=== PATIENT | female | born 1960 | race Caucasian/White ===

== ENCOUNTER → 2016-05-29 | Outpatient (CLI) | payer BC ==
[~2016-05-29] MED LIST: ASPI-586 PO; ESTR0.62 PO; LEVO50TA6 PO; LISI10TA2 PO; MELO7.5T46 PO; MULT-35 PO; OMG1KC PO
--- NOTE | 2016-05-29 15:13 | Diagnostic Imaging Report ---
PROCEDURE: MR imaging cervical spine without contrast. TECHNIQUE: Multiplanar, multisequence MR imaging of the cervical spine was performed without contrast. INDICATION: Chronic neck pain. COMPARISON: There are no prior studies available for comparison. FINDINGS: The reconstructed parasagittal images show the vertebral body heights and alignment to be within normal limits. The intervertebral spaces are fairly well-maintained although there is desiccation of the disc at every level. There are mild disc bulges essentially at every level of the cervical spine. However, the thecal sac is relatively generous. There is no evidence for central stenosis at any level of the cervical spine. There is mild narrowing of the neural foramen on the right at C3-C4 due to degenerative disc and bony disease. There does not appear to be any other significant neural foraminal narrowing. There is no abnormal signal arising from the cord or other vertebral bodies to indicate an acute abnormality. There is no sign of a paraspinal mass. The expected carotid and vertebral flow voids are evident bilaterally. IMPRESSION: 1. There is moderate degenerative disc disease throughout the cervical spine. There is no evidence for central stenosis at any level. There is mild narrowing of the neuroforamen on the right at C3-C4 due to degenerative disc and bony disease. 2. There is no sign of an acute bony abnormality or of a cord lesion. Dictated by: Dictated on workstation # [id number]
== END ==
LOC: RAD 13:58
PROVIDERS: ATTEND Family Medicine
DX: M50.31 Other cervical disc degeneration, high cervical region (principal)
CPT/HCPCS: 72141

== ENCOUNTER 2016-07-07 11:00 | Outpatient (CLI) | payer BC ==
--- OUTSIDE RECORDS SUMMARY | 2016-07-06 06:03 | XMS REPORT | Continuity of Care Document ---
Author Author [facility] Address Unknown Phone Unavailable Allergies Medications Problems Procedures Results Encounters ACCT No. Visit Date/Time Discharge Status Pt. Type Provider Facility Loc./Unit Complaint [id number] 03/19/2015 14:24:21 03/19/2015 23: 59:59 CLS Outpatient ANNA RODNEY [id number] 07/02/2016 09:44:20 ACT Outpatient ANNA RODNEY
[~2016-07-07] VITALS: Ht 154.9 cm; Wt 88.5 kg
[2016-07-07] MEDS ORDERED: LISI10TA2 PO (11:12)
[2016-07-07] MEDS ORDERED: MELO7.5T46 PO (11:12)
[2016-07-07] MEDS ORDERED: ESTR0.62 PO (11:12)
[2016-07-07] MEDS ORDERED: LEVO50TA6 PO (11:12)
[2016-07-07] MEDS ORDERED: OMG1KC PO (11:12)
[2016-07-07] MEDS ORDERED: MULT-35 PO (11:12)
[2016-07-07] MEDS ORDERED: ASPI-586 PO (11:13)
== END 2016-07-07 13:13 ==
LOC: PREOP 11:00
PROVIDERS: ATTEND Surgery Pediatric Surgery
DX: Z01.818 Encounter for other preprocedural examination (principal); Z12.11 Encounter for screening for malignant neoplasm of colon

== ENCOUNTER 2016-07-08 08:53 | Day surgery (SDC) | payer BC ==
[~2016-07-08] VITALS: Ht 154.9 cm; Wt 88.5 kg
[2016-07-08 09:05] VITALS: BP 142/86
[2016-07-08] MEDS ORDERED: LIDOCAINE JELLY 2% (XYLOCAINE) 5 ML TUBE MM PRN (09:15)
[2016-07-08] MEDS ORDERED: FLUMAZENIL (ROMAZICON) 0.1 MG/ML 5 ML VIAL INJ PRN (09:15)
[2016-07-08] MEDS ORDERED: NS IV 500 ML 500 ML IV PRN (09:15)
[2016-07-08] MEDS ORDERED: NALOXONE 0.4 MG/ML 1 ML (NARCAN) VIAL IVP PRN (09:15)
[2016-07-08] MEDS ORDERED: NS IV 500 ML 500 ML ONE (09:16)
--- NOTE | 2016-07-08 10:07 | Conscious Sedation/ASA ---
Conscious Sedation Pre-Proced Time Reviewed: 09:45 ASA Class: 2 Airway Mallampati Classification: (upper mattaponi appropriate class) I. II. III, IV Lungs Heart ASA score ASA 1: a normal healthy patient ASA 2: a patient with a mild systemic disease (mid diabetes, controlled hypertension, obesity ASA 3: a patient with a severe systemic disease that limits activity (angina , COPD, prior Myocardial infarction) ASA 4: a patient with an incapacitating disease that is a constant threat to life (CHF, renal failure) ASA 5: a moribund patient not expected to survive 24 hrs. (ruptured aneurysm) ASA 6: a declared brain patient whose organs are being harvested. For emergent operations, add the letter E after the classification Grade 2 Sedation Plan: Analgesia, Amnesia, Plan communicated to team members, Discussed options with patient/fam, Discussed risks with patient/fam Note The patient is an appropriate candidate to undergo the planned procedure, sedation, and anesthesia. The patient immediately re-assessed prior to indication. CLEMENCIA MONTALVO MD Jul 08, 2016 10:07 am
--- NOTE | 2016-07-08 10:11 | Progress Note-Pre Operative ---
Pre-Operative Progress Note H&P Reviewed The H&P was reviewed, patient examined and no changes noted. Date H&P Reviewed: Jul 08, 2016 Time H&P Reviewed: 09:45 Pre-Operative Diagnosis: screening colonoscopy CLEMENCIA MONTALVO MD Jul 08, 2016 10:11 am
[2016-07-08] MEDS ORDERED: ONDANSETRON 4 MG/2 ML (SDV) Z0FRAN IV PRN (10:15)
[2016-07-08] MEDS ORDERED: morphine INJ 10 MG/ML 1ML (SYR OR VIAL) IV PRN (10:15)
[2016-07-08] MEDS ORDERED: ACETAMINOPHEN 325 MG TABLET/CAPLET (TYLENOL) PO PRN (10:15)
[2016-07-08] MEDS ORDERED: HYDROcodone/APAP 5 MG/325 MG (LORTAB) TAB PO PRN (10:15)
[2016-07-08] MEDS ORDERED: fentaNYL INJECTION 100 MCG/2 ML AMP ONE ×2 (11:06)
[2016-07-08] MEDS ORDERED: LIDOCAINE JELLY 2% (XYLOCAINE) 5 ML TUBE ONE (11:06)
[2016-07-08] MEDS ORDERED: MIDAZOLAM 2 MG/2 ML (VERSED) VIAL ONE ×4 (11:07)
[2016-07-08] MEDS: fentaNYL INJECTION 100 MCG/2 ML AMP IVP PRN ×2 (11:09→11:13)
[2016-07-08] MEDS: MIDAZOLAM 2 MG/2 ML (VERSED) VIAL IVP PRN ×3 (11:12→11:21)
--- NOTE | 2016-07-08 11:36 | Progress Note-Post Operative ---
Post-Operative Progess Note Pre-Operative Diagnosis screening colonoscopy Post-Operative Diagnosis chronic stage 2 ext and int hemorrhoids. Post-Op Procedure Note Date of Procedure: Jul 08, 2016 Name of Procedure: Colonoscopy Anesthesia Type CS Estimated blood loss (mL): CLEMENCIA Gamez MD Jul 08, 2016 11:36 am
--- NOTE | 2016-07-08 11:38 | Discharge Inst-Surgical ---
D/C Lap Instructions-SELVIN Follow Up 10 years Activity as tolerated High Fiber Diet 25g or more per day Avoid Alcohol, Caffeine, Spicy [place] and Acid foods. Drink 64 fluid oz or more of fluids per day. Symptoms to Report: Fever over 101 degree F, Nausea/Vomiting If any problems/questions: Contact your physician or go to Emergency Room CLEMENCIA MONTALVO MD Jul 08, 2016 11:38 am
[2016-07-08 12:05] VITALS: BP 145/80
[2016-07-08 12:35] VITALS: BP 128/85
[2016-07-08 12:50] VITALS: BP 128/85
--- NOTE | 2016-07-08 13:14 | PROCEDURE REPORT ---
PROCEDURE PHYSICIAN: CLEMENCIA NOBLE DATE OF PROCEDURE: 07/08/2016 ATTENDING PRIMARY CARE PHYSICIAN: Dr. Kevon Ibanez. PREOPERATIVE DIAGNOSIS: Screening colonoscopy. POSTOPERATIVE DIAGNOSES: Mild chronic, stage II external and internal hemorrhoids. PROCEDURE: Colonoscopy. SURGEON: Dr. Noble. ANESTHESIA: Conscious sedation. ESTIMATED BLOOD LOSS: Minimal. FINDINGS: 1. Chronic, stage II external and internal hemorrhoids, not actively edematous or inflamed and no bleeding. 2. The remainder of the rectum and colon were normal. There were no polyps identified. DISPOSITION: The patient tolerated the procedure well. BRIEF HISTORY: Ms. Margie Villela is a 56-year-old female in need of a screening colonoscopy. She has not had a colonoscopy up to this point in her life. She does not report any major issues with diarrhea, nor constipation, as well as no abdominal pain. She does have some mild reflux, however, this is under control with diet. She does not report any red blood per rectum or any dark tarry stools. She reports that she does have a sister that had a polyp with what sounds to be dysplastic versus atypical change; however, no known colonic cancer. PROCEDURE: The patient was brought to the endoscopy suite, laid in left lateral decubitus position. After adequate IV pain and sedative medications and conscious sedation anesthesia, a digital rectal examination was performed. Mild chronic, stage II external and internal hemorrhoids were identified which were not actively edematous or inflamed and no bleeding. Normal sphincter tone was felt and there were no palpable masses. The endoscope was then intubated into the anus, rectum gently insufflated. The endoscope was then advanced through the valves of Estes of the rectum with no polyps or any or any neoplasms identified. We then proceeded through the sigmoid colon where no diverticulosis identified. The endoscope was then advanced through the remainder of the descending, transverse, and ascending colon to the cecum. These segments were normal. There were no polyps or any neoplasms identified throughout the colon or rectum. The endoscope was then slowly withdrawn while taking a second look and suctioning of residual air with no additional findings. The patient tolerated the procedure well. We will have her continue with medical management with a high fiber diet with at least 25 grams of fiber per day, as well as 64 fluid ounces of water daily to promote soft stools on a daily basis. She does not need another colonoscopy for another 10 years. Job ID: [id number] Dictated Date: 07/08/2016 11:34:03 Structural Biologist Date: 07/08/2016 13:08:49 / maday
--- OUTSIDE RECORDS SUMMARY | 2016-07-12 04:43 | XMS REPORT ---
Author Author ANNA RODNEY [facility] Address [address] [place], [place] [id number] Care Team Providers Care Box Liner Name Role Phone ANNA RODNEY PCP Unavailable ANNA RODNEY PreferredProvider Unavailable Allergies and Adverse Reactions Name Reaction Notes No known drug allergy Plan of Treatment Not available. Medications Active Name Start Date Estimated Completion Date SIG Comments Premarin 0.625 mg oral tablet take 1 tablet (0.625 mg) by oral route once daily levothyroxine 50 mcg oral tablet take 1 tablet (50 mcg) by oral route once daily lisinopril 10 mg oral tablet take 1 tablet (10 mg) by oral route once daily Problem List Not available. Vital Signs Date Time BP-Sys(mm[Hg] BP-Sarah(mm[Hg]) HR(bpm) RR(rpm) Temp WT HT HC BMI BSA BMI Percentile O2 Sat(%) 07/02/2016 11:45:00 AM 135 mmHg 82 mmHg 62 bpm 18 rpm 98.4 F 200 lbs 61 in 37.79 kg/m2 1.98 m2 98 % 03/19/2015 2:26:00 PM 135 mmHg 70 mmHg 72 bpm 16 rpm 98.4 F 191 lbs 61 in 36.0888 kg/m 1.931 m 97 % Social History Name Description Comments smoking Never Alcohol Current - status unknown Uses seatbelts Current every day Exercises regularly Never History of Procedures Not available. Results Summary Not available. History Of Immunizations Not available. 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 History of Encounters Visit Date Visit Type Provider 07/02/2016 Office visit ANNA DEJESUS 03/19/2015 Office visit ANNA DEJESUS
--- OUTSIDE RECORDS SUMMARY | 2016-07-12 04:43 | XMS REPORT ---
Author Author ANNA RODNEY [facility] Address [address] [place], [place] [id number] Care Team Providers Care Manufacturing Engineering Director Name Role Phone ANNA RODNEY PCP Unavailable Allergies and Adverse Reactions Name Reaction [...] HC BMI BSA BMI Percentile O2 Sat(%) 03/19/2015 2:26:00 PM 135 mmHg 70 mmHg 72 bpm 16 rpm 98.4 F 191 lbs 61 in 36.09 kg/m2 1.93 m2 97 % Social History Name Description Comments smoking Never Alcohol Current - status unknown Uses seatbelts Current every day Exercises regularly Never History of Procedures Not available. Results Summary Not available. History Of Immunizations Not available. History of Past Illness Name Date of Onset Comments Hypertension High cholesterol DOT Physical Mar 19 2015 2:27PM Payers Not available. History of Encounters Visit Date Visit Type Provider 03/19/2015 Office visit ANNA DEJESUS
--- OUTSIDE RECORDS SUMMARY | 2016-07-12 04:43 | XMS REPORT | Continuity of Care Document ---
Author Author [facility] Address Unknown Phone Unavailable Allergies Medications Problems Procedures Results Encounters ACCT No. Visit Date/Time Discharge Status Pt. Type Provider Facility Loc./Unit Complaint [id number] 03/19/2015 14:24:21 03/19/2015 23: 59:59 CLS Outpatient ANNA RODNEY [id number] 07/02/2016 09:44:20 ACT Outpatient ANNA RODNEY
== END 2016-07-08 12:50 | disposition home or self-care (01) ==
LOC: DELPENDDIS → ENDO 08:53
PROVIDERS: ATTEND Surgery Pediatric Surgery
DX: Z12.11 Encounter for screening for malignant neoplasm of colon (principal); K64.1 Second degree hemorrhoids

== ENCOUNTER → 2017-03-15 | Outpatient (CLI) | payer BC | LOC: RAD 11:20 | PROVIDERS: ATTEND Family Medicine | DX: Z12.31 Encounter for screening mammogram for malignant neoplasm of breast (principal) | CPT/HCPCS: 77067 ==

== ENCOUNTER → 2017-03-29 | Outpatient (CLI) | payer BC ==
--- NOTE | 2017-03-29 10:17 | Diagnostic Imaging Report ---
EXAMINATION: Right breast diagnostic mammogram. The current study was also evaluated with a Computer Aided Detection (CAD) system. INDICATION: Focal asymmetry seen along the central upper aspect of the right breast. FINDINGS: Focal compression views and tomography evaluation confirms a lobulated circumscribed mass measuring 1.2 cm around the 11 to 12 o'clock zone about 3 cm from the nipple. This is favored to be a cyst or fibroadenoma. IMPRESSION: A circumscribed 1.2 cm mass is confirmed in the upper aspect of the right breast. Ultrasound evaluation is pending. ACR BI-RADS Category 0: Incomplete. (Needs additional imaging evaluation). Result letter will be mailed to the patient. Note: At least 10% of breast cancer is not imaged by mammography. Dictated by: Dictated on workstation # [id number]
--- NOTE | 2017-03-29 10:20 | Diagnostic Imaging Report ---
EXAMINATION: Right breast ultrasound. INDICATION: Nodule in the upper aspect of the right breast. FINDINGS: At the 11:30 o'clock position 7 cm from the nipple, there is a 1.4 x 0.5 x 0.9 cm lobulated hypoechoic lesion with no significant through-transmission or internal vascularity. The borders are circumscribed. This is favored to be a complicated cyst. No other lesion is seen in the surrounding area. IMPRESSION: 1.4 cm circumscribed hypoechoic lesion at the 11:30 o'clock position 7 cm from the nipple may correlate with the nodule seen on mammography which also has features in favor of a benign etiology. A 6 month followup mammogram and ultrasound are recommended to ensure stability. ACR BI-RADS Category 3: Probably benign findings. Dictated by: Dictated on workstation # [id number]
== END ==
LOC: RAD 08:59
PROVIDERS: ATTEND Family Medicine
DX: N63.41 Unspecified lump in right breast, subareolar (principal)

== ENCOUNTER → 2017-04-15 | Outpatient (CLI) | payer BC ==
--- NOTE | 2017-04-15 12:00 | Diagnostic Imaging Report ---
EXAMINATION: DEXA scan. INDICATION: Osteopenia. TECHNIQUE: Bone mineral density estimated based on dual energy radiography over the lumbar spine and femoral necks, was performed. FINDINGS: The lumbar spine T-score is -1.7. This is 0.7% decreased density measurement compared to 2015 exam. The T score in the left femoral neck is -0.3 and on the right side is -0.4. This is 5% increased density measurement compared to 2013. IMPRESSION: Osteopenia. Dictated by: Dictated on workstation # [id number]
== END ==
LOC: RAD 08:51
PROVIDERS: ATTEND Family Medicine
DX: M85.80 Other specified disorders of bone density and structure, unspecified site (principal)
CPT/HCPCS: 77080

== ENCOUNTER → 2017-08-23 | Outpatient (CLI) | payer BC ==
[~2017-08-23] MED LIST changes: +HYDR-34 PO
--- NOTE | 2017-08-23 15:45 | Diagnostic Imaging Report ---
EXAMINATION: Left wrist at 10:21 a.m. INDICATION: Wrist pain. FINDINGS: Three views were obtained. There are no prior studies available for comparison. There is deformity of the waist of the scaphoid bone. Most likely, this is a sequela of prior trauma. There is also a 2.6 x 5.2 mm calcification in the soft tissues adjacent to the lateral aspect of the scaphoid bone. This may be a long-standing fracture fragment. There is no increased density within the proximal scaphoid to suggest avascular necrosis; however if further evaluation is desired, then MRI will be recommended. There is no fracture or acute bony abnormality appreciated otherwise. There is moderate narrowing of the radiocarpal joint. The soft tissues are unremarkable. IMPRESSION: 1. There is no evidence for an acute bony abnormality. 2. There are posttraumatic changes involving the scaphoid bone. There is no evidence for avascular necrosis, but MRI should be considered for further evaluation if clinically indicated. There is moderate narrowing of the radiocarpal joint. Dictated by: Dictated on workstation # [id number]
== END ==
LOC: LAB 09:44
PROVIDERS: ATTEND Family Medicine
DX: M19.232 Secondary osteoarthritis, left wrist (principal)
CPT/HCPCS: 73110

== ENCOUNTER → 2017-09-06 | Outpatient (CLI) | payer BC ==
--- NOTE | 2017-09-06 14:13 | Diagnostic Imaging Report ---
INDICATION: Six-month followup right breast nodule. COMPARISON: Correlation is made with prior mammogram from 03/15/2017. TECHNIQUE: 2D and 3D unilateral right diagnostic mammography was performed. The current study was also evaluated with a Computer Aided Detection (CAD) system. FINDINGS: The circumscribed lobulated density in the upper aspect of the right breast appears to be stable. No new mass is identified. No malignant appearing microcalcifications are seen. The right axilla is unremarkable. IMPRESSION: Stable circumscribed nodule in the upper right breast at posterior depth when compared with the examination six months earlier. Followup right breast ultrasound is also recommended and will be performed today. ACR BI-RADS Category 0: Incomplete. (Needs additional imaging evaluation). Result letter will be mailed to the patient. Note: At least 10% of breast cancer is not imaged by mammography. Dictated by: Dictated on workstation # [id number]
--- NOTE | 2017-09-06 14:43 | Diagnostic Imaging Report ---
Indication: Right breast nodule. Patient presents for six-month followup. Correlation is made with prior right breast ultrasound from 03/29/2017 as well as diagnostic mammogram earlier the same day. Sonographic interrogation of the right breast again demonstrates a circumscribed hypoechoic mass at the 11:30 location, 7 cm from the nipple. This measures 12 mm x 4 mm x 10 mm compared with 14 mm x 5 mm x 10 mm. This has the appearance of a cyst. No internal vascularity is seen. No additional masses detected. Impression: BI-RADS category 3. Stable circumscribed hypoechoic mass 11:30 location of right breast, likely cysts. Additional six-month followup at the time of patient's bilateral mammography in 6 months is recommended to confirm stability. Dictated by: Dictated on workstation # [id number]
== END ==
LOC: RAD 13:40
PROVIDERS: ATTEND Family Medicine
DX: N63.11 Unspecified lump in the right breast, upper outer quadrant (principal)

== ENCOUNTER 2017-09-27 10:42 | Outpatient (CLI) | payer BC ==
[~2017-09-27] VITALS: Ht 154.9 cm; Wt 88.2 kg
[~2017-09-27 10:42] MED LIST changes: -HYDR-34 PO
[2017-09-27 11:00] VITALS: BP 126/76
== END 2017-09-27 11:17 | disposition home or self-care (01) ==
LOC: PREOP 10:42
PROVIDERS: ATTEND Surgery
DX: Z01.818 Encounter for other preprocedural examination (principal); Z11.2 Encounter for screening for other bacterial diseases; N63.10 Unspecified lump in the right breast, unspecified quadrant
CPT/HCPCS: 87081

== ENCOUNTER 2017-09-30 08:17 | Day surgery (SDC) | payer BC ==
[~2017-09-30] VITALS: Ht 154.9 cm; Wt 88.2 kg
[2017-09-30 08:20] VITALS: BP 135/65
[2017-09-30] MEDS ORDERED: LIDOCAINE 1% INJ 20 ML 20 ML VIAL INJ ONE (08:30)
[2017-09-30] MEDS ORDERED: ceFAZolin INJECTION 1,000 MG in NS (IVPB) 50 ML IV ONE (08:30)
--- OUTSIDE RECORDS SUMMARY | 2017-09-30 08:37 | XMS REPORT | Continuity of Care Document ---
Author Author [facility] Organization [facility] Address Unknown Phone Unavailable Allergies Active Description Code Type Severity Reaction Onset Reported/Identified Relationship to Patient Clinical Status Yes No Known Drug Allergies [id number] Drug Allergy Unknown N/A 07/08/2016 Medications There is no data. Problems Date Dx Coded Attending Type Code Diagnosis Diagnosed By 09/02/2015 Ot 733.90 BONE CARTILAGE DIS NOS 09/02/2015 Ot V76.12 OTH SCREEN MAMMO-MALIGN NEOPLASM OF CHELSI 09/02/2015 Ot 733.90 BONE CARTILAGE DIS NOS 09/02/2015 Ot V17.81 FAMILY HISTORY, OSTEOPOROSIS 09/02/2015 Ot V76.12 OTH SCREEN MAMMO-MALIGN NEOPLASM OF CHELSI 09/02/2015 Ot V82.81 SCREENING FOR OSTEOPOROSIS 05/29/2016 Ot 733.90 BONE CARTILAGE DIS NOS 05/29/2016 Ot V17.81 FAMILY HISTORY, OSTEOPOROSIS 05/29/2016 Ot V76.12 OTH SCREEN MAMMO-MALIGN NEOPLASM OF CHELSI 05/29/2016 Ot V82.81 SCREENING FOR OSTEOPOROSIS 06/01/2016 CANDELARIA GRIER, JW R Ot M50.31 OTHER CERVICAL DISC DEGENERATION, HIGH 06/24/2016 JW GAONA MD R Ot M50.31 OTHER CERVICAL DISC DEGENERATION, HIGH 07/07/2016 CLEMENCIA MONTALVO MD Ot Z01.818 ENCOUNTER FOR OTHER PREPROCEDURAL EXAMIN 07/07/2016 CLEMENCIA MONTALVO MD Ot Z12.11 ENCOUNTER FOR SCREENING FOR MALIGNANT NE 07/07/2016 CLEMENCIA MONTALVO MD Ot Z01.818 ENCOUNTER FOR OTHER PREPROCEDURAL EXAMIN 07/07/2016 CLEMENCIA MONTALVO MD Ot Z12.11 ENCOUNTER FOR SCREENING FOR MALIGNANT NE 07/07/2016 CLEMENCIA MONTALVO MD Ot Z01.818 ENCOUNTER FOR OTHER PREPROCEDURAL EXAMIN 07/07/2016 CLEMENCIA MONTALVO MD Ot Z12.11 ENCOUNTER FOR SCREENING FOR MALIGNANT NE 07/07/2016 CLEMENCIA MONTALVO MD Ot Z01.818 ENCOUNTER FOR OTHER PREPROCEDURAL EXAMIN 07/07/2016 CLEMENCIA MONTALVO MD Ot Z12.11 ENCOUNTER FOR SCREENING FOR MALIGNANT NE 07/08/2016 CLEMENCIA MONTALVO MD Ot K64.1 SECOND DEGREE HEMORRHOIDS 07/08/2016 CLEMENCIA MONTALVO MD Ot Z12.11 ENCOUNTER FOR SCREENING FOR MALIGNANT NE 07/08/2016 CLEMENCIA MONTALVO MD Ot Z01.818 ENCOUNTER FOR OTHER PREPROCEDURAL EXAMIN 07/08/2016 CLEMENCIA MONTALVO MD Ot Z12.11 ENCOUNTER FOR SCREENING FOR MALIGNANT NE 07/09/2016 CLEMENCIA MONTALVO MD Ot K64.1 SECOND DEGREE HEMORRHOIDS 07/09/2016 CLEMENCIA MONTALVO MD Ot Z12.11 ENCOUNTER FOR SCREENING FOR MALIGNANT NE 07/09/2016 CLEMENCIA MONTALVO MD Ot K64.1 SECOND DEGREE HEMORRHOIDS 07/09/2016 CLEMENCIA MONTALVO MD Ot Z12.11 ENCOUNTER FOR SCREENING FOR MALIGNANT NE 07/14/2016 CLEMENCIA MONTALVO MD Ot K64.1 SECOND DEGREE HEMORRHOIDS 07/14/2016 CLEMENCIA MONTALVO MD Ot Z12.11 ENCOUNTER FOR SCREENING FOR MALIGNANT NE 03/16/2017 JW GAONA MD R Ot Z12.31 ENCNTR SCREEN MAMMOGRAM FOR MALIGNANT NE 04/07/2017 JW GAONA MD R Ot N63.41 UNSPECIFIED LUMP IN RIGHT BREAST, SUBARE 04/16/2017 JW GAONA MD R Ot M85.80 OTH DISRD OF BONE DENSITY AND STRUCTURE, 04/29/2017 JW GAONA MD R Ot M85.80 OTH DISRD OF BONE DENSITY AND STRUCTURE, 08/25/2017 JW GAONA MD R Ot M19.232 SECONDARY OSTEOARTHRITIS, LEFT WRIST 09/07/2017 JW GAONA MD R Ot N63.11 UNSPECIFIED LUMP IN THE RIGHT BREAST, UP 09/09/2017 JW GAONA MD R Ot M19.232 SECONDARY OSTEOARTHRITIS, LEFT WRIST 09/22/2017 JW GAONA MD R Ot N63.11 UNSPECIFIED LUMP IN THE RIGHT BREAST, UP Procedures There is no data. Results Test Result Range Methicillin resistant Staphylococcus aureus (MRSA) screening culture - 11:10 Methicillin resistant Staphylococcus aureus (MRSA) screening culture NEG NRG Encounters ACCT No. Visit Date/Time Discharge Status Pt. Type Provider Facility Loc./Unit Complaint [id number] 07/02/2016 09:44:20 07/02/2016 23:59:59 CLS Outpatient ANNA RODNEY [id number] 03/19/2015 14:24:21 03/19/2015 23:59:59 CLS Outpatient ANNA RODNEY [id number] 09/21/2017 15:25:00 09/21/2017 23:59:59 CLS Preadmit DEISY CADENA APRN [facility] SDC RT BREAST MASS [id number] 09/06/2017 13:40:00 09/06/2017 23:59:59 CLS Outpatient JW GAONA MD [facility] RAD RIGHT BREAST MASS [id number] 08/23/2017 09:44:00 08/23/2017 23:59:59 CLS Outpatient JW GAONA MD [facility] LAB M19.232 [id number] 04/15/2017 08:51:00 04/15/2017 23:59:59 CLS Outpatient JW GAONA MD [facility] RAD WELLNESS EXAMINATION [id number] 03/29/2017 08:59:00 03/29/2017 23:59:59 CLS Outpatient JW GAONA MD [facility] RAD ABNORMAL MAMMOGRAM OF RIGHT BREAST [id number] 03/15/2017 11:30:00 03/15/2017 11:30:00 CAN Preadmit JW GAONA MD [facility] RAD WELLNESS EXAM Z00.00 [id number] 07/08/2016 08:53:00 07/08/2016 12:50:00 DIS Outpatient CLEMENCIA MONTALVO MD [facility] ENDO SCREENING [id number] 07/07/2016 11:00:00 07/07/2016 13:13:00 DIS Outpatient CLEMENCIA MONTALVO MD [facility] PREOP SCREENING [id number] 05/29/2016 13:58:00 05/29/2016 23:59:59 CLS Outpatient CANDELARIA GRIER, JW Davalos [facility] RAD NEUROPATHY [id number] 09/28/2017 17:05:00 Document Registration [id number] 07/05/2012 14:22:00 Document Registration [id number] 07/22/2010 10:20:00 Document Registration
[2017-09-30] MEDS ORDERED: BUP/EPI 0.5% 1:200,000 (SENSORCAINE) 30 ML VIAL ONE (09:03)
[2017-09-30] MEDS: LACTATED RINGERS 1,000 ML IV PRN ×2 (09:14→10:33)
[2017-09-30] MEDS ORDERED: NS (IVPB) 50 ML ONE (09:15)
[2017-09-30] MEDS ORDERED: ceFAZolin 1,000 MG (ANCEF) VIAL ONE (09:15)
--- NOTE | 2017-09-30 09:16 | Pre-Procedure Progress Note ---
Pre-Procedure Progress Note H&P Reviewed The H&P was reviewed, patient examined and no changes noted. Date H&P Reviewed: Sep 30, 2017 Time H&P Reviewed: 08:00 Pre-Procedure Diagnosis: Breast mass MURALI ZARAGOZA MD Sep 30, 2017 09:16
[2017-09-30] MEDS ORDERED: MIDAZOLAM 2 MG/2 ML (VERSED) VIAL ONE (09:21)
[2017-09-30] MEDS ORDERED: fentaNYL INJECTION 100 MCG/2 ML AMP ONE (09:22)
[2017-09-30] MEDS ORDERED: proPOfol 200 MG/20 ML (DIPRIVAN) VIAL IV ONE (09:24)
[2017-09-30] MEDS ORDERED: DEXAMETHASONE 10 MG/ML (DECADRON) 1 ML VIAL ONE (09:24)
[2017-09-30] MEDS ORDERED: LIDOCAINE PF 2% 5 ML (XYLOCAINE) VIAL ONE (09:24)
[2017-09-30] MEDS ORDERED: ONDANSETRON 4 MG/2 ML (SDV) Z0FRAN ONE (09:24)
--- NOTE | 2017-09-30 09:29 | Progress Note-Pre Operative ---
Pre-Operative Progress Note H&P Reviewed The H&P was reviewed, patient examined and no changes noted. Date Seen by Provider: Sep 30, 2017 Time Seen by Provider: 09:00 Date H&P Reviewed: Sep 30, 2017 Time H&P Reviewed: 09:00 Pre-Operative Diagnosis: persistent right breast lesion CLEMENCIA MONTALVO MD Sep 30, 2017 9:29 am
[2017-09-30] MEDS ORDERED: HYDROcodone/APAP 5 MG/325 MG (LORTAB) TAB PO ONE (09:30)
[2017-09-30] MEDS ORDERED: ACETAMINOPHEN 325 MG TABLET/CAPLET (TYLENOL) PO PRN (09:30)
[2017-09-30] MEDS ORDERED: ONDANSETRON 4 MG/2 ML (SDV) Z0FRAN IVP PRN ×2 (09:30→11:30)
[2017-09-30] MEDS ORDERED: morphine INJ 10 MG/ML 1ML (SYR OR VIAL) IVP PRN ×2 (09:30→11:30)
[2017-09-30] MEDS ORDERED: SEVOFLURANE (ULTANE) 15 ML INHAL SOLN ONE ×4 (10:44→11:18)
--- NOTE | 2017-09-30 10:46 | Diagnostic Imaging Report ---
Indication: Right breast nodule. Patient presents for ultrasound-guided needle localization. Patient was brought to the procedure room and placed on the table in the supine position. Ultrasound imaging over the right breast was performed to evaluate appropriate entry site. The right breast was then prepped and draped in usual sterile fashion. Small amount of 1% lidocaine was utilized for local anesthesia. The previously noted circumscribed hypoechoic nodule at 11:30 location of the right breast 7 cm from the nipple was visualized. Localizing needle was advanced and placed adjacent to the hypoechoic nodule. Hookwire was deployed and the needle was removed. Wire was affixed to the patient's skin. Patient tolerated the procedure well. IMPRESSION: Ultrasound-guided hookwire placement adjacent to the circumscribed nodule in the right breast at 11:30 location 7 cm from the nipple. Dictated by: Dictated on workstation # [id number]
--- NOTE | 2017-09-30 11:03 | Progress Note-Post Operative ---
Post-Operative Progess Note Surgeon (s)/Oriental Medicine Practitioner (s) Surgeon CELMENCIA MONTALVO MD Oriental Medicine Practitioner: marcelino mao INCIDENT HANDLER Pre-Operative Diagnosis persistent right breast lesion Post-Operative Diagnosis same Procedure & Operative Findings Date of Procedure 09/30/17 Procedure Performed/Findings needle localization right breast bx. Anesthesia Type general LMA Estimated Blood Loss Estimated blood loss (mL): minimal Specimens/Packing Specimens Removed right breast lesion CLEMENCIA MONTALVO MD Sep 30, 2017 11:03 am
[2017-09-30] MEDS ORDERED: HYDR-34 PO (11:05)
--- NOTE | 2017-09-30 11:06 | Discharge Inst-Surgical ---
D/C Lap Instructions-SELVIN New, Converted, or Re-Newed RX: RX on Chart Follow Up Appt in 2 weeks Activity as tolerated Regular Diet Symptoms to Report: Fever over 101 degree F, Nausea/Vomiting Infection Signs and Symptoms to report: Increased redness, Foul odor of wound, Increased drainage Bathing instructions: May shower Operative Area Clean/Dry; Keep incision clean/dry If any problems/questions: Contact your physician or go to Emergency Room CLEMENCIA MONTALVO MD Sep 30, 2017 11:06 am
[2017-09-30] MEDS ORDERED: BUP/EPI 0.5% 1:200,000 (SENSORCAINE) 30 ML VIAL INJ ONE (11:15)
[2017-09-30 12:25] VITALS: BP 128/82
[2017-09-30 12:55] VITALS: BP 122/66
--- NOTE | 2017-09-30 13:20 | Anesthesia-General Post-Op ---
General Patient Condition Mental Status/LOC: Same as Preop Cardiovascular: Satisfactory Nausea/Vomiting: Absent Respiratory: Satisfactory Pain: Controlled Complications: Absent Post Op Complications Complications None Follow Up Care/Instructions Patient Instructions None needed. Anesthesia/Patient Condition Patient Condition Patient is doing well, no complaints, stable vital signs, no apparent adverse anesthesia problems. No complications reported per nursing. D/C home per [facility] [place] Criteria: Yes JOSE BLACKMAN CRNA Sep 30, 2017 13:20
[2017-09-30 13:25] VITALS: BP 116/68
[2017-09-30 13:35] VITALS: BP 116/68
--- NOTE | 2017-09-30 14:46 | OPERATIVE REPORT ---
DATE OF SERVICE: 09/30/2017 ATTENDING PRIMARY CARE PHYSICIAN: Dr. Ibanez. PREOPERATIVE DIAGNOSIS: Persistent right breast lesion. POSTOPERATIVE DIAGNOSIS: Persistent right breast lesion. PROCEDURE: Needle localization wire-guided breast biopsy. SURGEON: Clemencia Montalvo MD HOGSHEAD WRECKER: Neel Maurice APRN ANESTHESIA: General laryngeal mask airway. ESTIMATED BLOOD LOSS: Minimal. FINDINGS: The initial impression after excision was the lesion was excised; however, the lesion may have been close to the deep margin and we proceeded with a second resection posteriorly. DISPOSITION: The patient tolerated the procedure well. INDICATIONS: The patient is a 57-year-old female known to us. We had done a colonoscopy before in 2017. She has a right breast mass that was identified on annual mammogram in 2017. An ultrasound was also performed which did show the lesion at approximately the 11:30 position 7 cm from the nipple, which was hypoechoic approximately 1.2 cm in size. A repeat ultrasound was performed on 09/06/2017, which showed a stable circumscribed lesion 12 x 10 mm in size. The lesion is nonpalpable and she does not report any symptoms; however, she does have a strong family history of breast cancer with three sisters being diagnosed with breast cancer as well as her maternal grandmother. She also believes there are other malignancies within the family. DESCRIPTION OF PROCEDURE: The patient was brought to the operating room, laid supine on the table. After adequate IV pain and sedative medications and general laryngeal mask airway intubation, the chest was prepped and draped in standard surgical fashion. A 0.5% Marcaine with epinephrine was then used to anesthetize the overlying skin just inferior to the needle. A crescent-shaped skin incision was then made using a 15 blade. The subcutaneous tissue was then opened using electrocautery. We then proceeded to dissect a core around the entirety of the needle using Nabil clamps and electrocautery with visualization of good hemostasis. The specimen was sent to radiology and the initial reading was that the lesion was excised; however, the tip of the lesion was close to the deep margin and we decided to proceed with second deep margin excision using electrocautery and blunt dissection with visualization of good hemostasis. The wound was then irrigated. Good hemostasis was observed. The breast tissue was then reapproximated using 3-0 Vicryl suture. The subcutaneous tissue was then reapproximated using 3-0 Vicryl interrupted sutures. Skin was closed using 4-0 Monocryl running subcuticular suture. The widest dimension of the intermediate wound closure was 6cm. The skin was then cleaned and covered with Dermabond. The patient tolerated the procedure well. We will await the biopsy results and she will be instructed to continue to proceed with breast supportive garments to prevent seroma formation as well as to withhold from heavy lifting and exertion for two weeks. Job ID: [id number] DocumentID: [id number] Dictated Date: 09/30/2017 11:12:54 [employer] Cleaning Machine Feeder Date: 09/30/2017 14:46:08 Dictated By: CLEMENCIA MONTALVO MD MTDD
--- NOTE | 2017-09-30 19:28 | Diagnostic Imaging Report ---
INDICATION: Right breast nodule. Patient is status post right breast excisional biopsy. EXAMINATION: Specimen radiograph was obtained. FINDINGS: Radiograph does demonstrate the hookwire located within the specimen. There is an area of nodularity present adjacent to the tip of the hook wire, possibly representing the known breast nodule. Remainder of the specimen is unremarkable. No suspicious calcifications are seen. IMPRESSION: The hook wire is located within the specimen. There is also an area of nodularity adjacent to the tip of the hook wire, presumably representing the targeted breast nodule. Pathology results are currently pending. Dictated by: Dictated on workstation # [id number]
== END 2017-09-30 13:35 | disposition home or self-care (01) ==
LOC: RAD 08:17
PROVIDERS: ATTEND Surgery
DX: N60.91 Unspecified benign mammary dysplasia of right breast (principal); I10 Essential (primary) hypertension; Z79.82 Long term (current) use of aspirin; Z79.899 Other long term (current) drug therapy
CPT/HCPCS: 19285; 76098; 88305

== ENCOUNTER → 2020-02-06 | Outpatient (CLI) | payer BC ==
[~2020-02-06] MED LIST changes: +HYDR-34 PO
--- NOTE | 2020-02-06 15:50 | Diagnostic Imaging Report ---
INDICATION: Postmenopausal. COMPARISON: 04/15/2017. FINDINGS: The bone mineral density of the hips and spine was measured. The study was compared to the prior exam of 04/15/2017. The T-score for the spine is -0.8. On the prior exam, the T-score was -1.7. The total T-score for the left hip is -0.4 and for the right hip -0.6. On the prior exam, the expected T-scores were -0.3 and -0.4. The T-score for each femoral neck is -1.5. Previously, the T-score for the left femoral neck was -1.5 and for the right -1.4. AP Spine L1-L4: [BMD (g/cm2): 1.099] [T-Score: -0.8] [Z-Score: -0.4] [BMD Previous: 0.993] [BMD % Change: 10.7] LT Hip Neck: [BMD (g/cm2): 0.826] [T-Score: -1.5] [Z-Score: -0.8] LT Hip Total: [BMD (g/cm2):0.952] [T-Score:-0.4] [Z-Score: 0.0] [BMD Previous: 0.973] [BMD % Change: -2.2] RT Hip Neck: [BMD (g/cm2):0.826] [T-Score:-1.5] [Z-Score:-0.8] RT Hip Total: [BMD (g/cm2):0.936] [T-score:-0.6] [Z-Score:-0.2] [BMD Previous:0.955] [BMD % Change:-2.0] *Indicates significant change from prior examination based on 95% confidence level. World Health Organization criteria for BMD interpretation classify patients as Normal (T-score at or above -1.0), Osteopenic (T-score between -1.0 and -2.5) or Osteoporotic (T-score at or below -2.5). LIMITATIONS AND MODIFICATION: None. FRACTURE RISK (FRAX SCORE): The ten year probability of (%): Major Osteoporotic Fracture: [7.4] Hip Fracture: [0.6] IMPRESSION: 1. The bone mineral density of the spine has increased since the prior exam and the T-score is now within normal limits. 2. There has been no significant change of the bone mineral density of the hips and femoral necks. The T-score values for the hips still fall within the range of normal while the T-score values for the femoral necks still indicate osteopenia. 3. See below National Osteoporosis Foundation guidelines on when to potentially initiate pharmacologic therapy. Based on the National Osteoporosis Foundation Guidelines, pharmacologic treatment should be initiated in any of the following, unless clinical conditions suggest otherwise: * Any patient with prior fragility fracture of the hip or vertebrae. A spine fracture indicates 5X risk for subsequent spine fracture and 2X risk for subsequent hip fracture. * Osteoporosis (T-score <-2.5). * Postmenopausal women and men age 50 and older with low bone mass/osteopenia (T-score between -1.0 and -2.5) by DXA and 10-year major osteoporotic fracture greater than 20% or a 10-year probability of hip fracture greater than 3%. These fracture risks are supplied above in the FRAX score, if applicable. * Clinician judgement and/or patient preferences may indicate treatment for people with 10-year fracture probabilities above or below these levels. Dictated by: Dictated on workstation # [id number]
--- NOTE | 2020-02-07 09:35 | Diagnostic Imaging Report ---
EXAMINATION: Digital mammogram bilateral screening with CAD. INDICATION: Screening. COMPARISON: This study was compared to the prior exams of 09/06/2017, 03/15/2017, and 07/05/2012. PERSONAL HISTORY: At this time, there are no current complaints. FINDINGS: There are scattered fibroglandular densities in both breasts which could obscure a lesion. On the prior exam, there was a roughly 1 cm rounded density in the 11-12 o'clock position of the right breast at mid posterior depth. The ultrasound exam performed on 09/06/2017 suggested that this was most likely a cyst. On this exam, that finding has decreased in size and now measures only approximately 6 to 7 mm. The scar formation in the upper-outer quadrant of the right breast seen previously is again evident and no different. The overall appearance of the breasts has not changed significantly otherwise. There is no primary or secondary sign of malignancy noted. IMPRESSION: 1. There is no evidence for malignancy. 2. The patient should have her annual bilateral screening mammogram on schedule in January 2021. ACR BI-RADS Category 1: Negative. Result letter will be mailed to the patient. Note: At least 10% of breast cancer is not imaged by mammography. Dictated by: Dictated on workstation # [id number]
== END ==
LOC: RAD 14:30
PROVIDERS: ATTEND Nurse Practitioner
DX: Z12.31 Encounter for screening mammogram for malignant neoplasm of breast (principal); M85.852 Other specified disorders of bone density and structure, left thigh; M85.851 Other specified disorders of bone density and structure, right thigh
CPT/HCPCS: 77063; 77067; 77080

== ENCOUNTER → 2021-03-10 | Outpatient (CLI) | payer BC ==
[~2021-03-10] MED LIST changes: -LISI10TA2 PO; +LISI10TA25 PO
--- NOTE | 2021-03-10 12:02 | Diagnostic Imaging Report ---
INDICATION: Routine screening. Comparison is made with prior mammogram from 02/06/2020 and 03/15/2017. 2-D and 3-D bilateral screening mammography was performed with CAD. Both breasts are heterogeneously dense, limiting the sensitivity of mammography. Previously noted density in the upper outer right breast appears stable. No new mass is identified. No malignant-appearing microcalcifications are seen. Axillae are unremarkable. IMPRESSION: No mammographic features suspicious for malignancy are identified. BI-RADS Category 2 ACR BI-RADS Category 2: Benign findings. Result letter will be mailed to the patient. Note: At least 10% of breast cancer is not imaged by mammography. Dictated by: Dictated on workstation # [id number]
== END ==
LOC: RAD 10:30
PROVIDERS: ATTEND Nurse Practitioner
DX: Z12.31 Encounter for screening mammogram for malignant neoplasm of breast (principal); R01.1 Cardiac murmur, unspecified
CPT/HCPCS: 77063; 77067; 93306

== ENCOUNTER → 2021-06-16 | Outpatient (CLI) | payer BC ==
[2021-06-16 10:34] VITALS: BP 138/91
== END ==
LOC: CARD 10:30
PROVIDERS: ATTEND Internal Medicine Cardiovascular Disease
DX: I10 Essential (primary) hypertension (principal); I49.9 Cardiac arrhythmia, unspecified
CPT/HCPCS: 93225; 93226; 93351

== ENCOUNTER → 2022-03-23 | Outpatient (CLI) | payer BC ==
--- NOTE | 2022-03-23 12:09 | Diagnostic Imaging Report ---
INDICATION: Routine screening. Comparison is made prior mammogram of 03/10/2021 and 02/06/2020. 2-D and 3-D bilateral screening mammography was performed with CAD. Scattered fibroglandular densities are identified bilaterally. There are benign calcifications. No mass or malignant-appearing microcalcifications are seen. Axillae are unremarkable. IMPRESSION: No mammographic features suspicious for malignancy are identified. ACR BI-RADS Category 2: Benign findings. Result letter will be mailed to the patient. Note: At least 10% of breast cancer is not imaged by mammography. BI-RADS Category 2 Dictated by: Dictated on workstation # [id number]
== END ==
LOC: RAD 09:30
PROVIDERS: ATTEND Nurse Practitioner
DX: Z12.31 Encounter for screening mammogram for malignant neoplasm of breast (principal)
CPT/HCPCS: 77063; 77067